=== PATIENT | female | born 1980 | race Caucasian/White ===

== ENCOUNTER 2016-05-22 15:11 | Emergency (ER) | payer OTHER ==
[~2016-05-22] VITALS: Ht 165.1 cm; Wt 73.5 kg
[~2016-05-22 15:11] MED LIST: ACET-749 PO
[2016-05-22 15:15] VITALS: TEMP 36.7; Ht 165.1 cm; Wt 73.5 kg
--- NOTE | 2016-05-22 16:04 | DIAGNOSTIC IMAGING REPORT ---
RIGHT KNEE 3 VIEWS HISTORY: right knee pain, prior surgery Right COMPARISON: Right knee 12/25/2014. FINDINGS: There is no fracture or dislocation. Soft tissues are unremarkable. No radiopaque foreign bodies. No knee effusion. IMPRESSION: Unremarkable right knee. Electronically signed by: Chao Portillo M.D. 05/22/2016 4:02 PM
[2016-05-22] MEDS ORDERED: NAPR-1169 PO (16:15)
--- NOTE | 2016-05-22 16:16 | EMERGENCY ROOM VISIT NOTE ---
ED Visit Note First contact with patient: 15:22 CHIEF COMPLAINT: knee pain HISTORY OF PRESENT ILLNESS: This 36-year-old female patient presents to the emergency department ambulatory complaining of pain in the right knee. The patient reports that she has had chronic issues with her right knee. She had 2 previous surgeries to repair the meniscus, with the most recent being 3 years ago. She states that since the second surgery, she has had issues with her right knee giving out. She did have a second opinion by another orthopedic surgeon, who sent her to physical therapy. The patient reports that this did not help her. She then received a steroid injection which gave her no relief. She states that her knee gives out frequently while walking. She has pain with walking. The patient is able to bear weight on the knee. She rates her discomfort a 10/10. She denies any new injuries to the knee. She denies any numbness, tingling or weakness of the right lower extremity. She denies any hip or ankle pain. REVIEW OF SYSTEMS: A 6 system review of systems was completed with positives and pertinent negatives listed in the HPI. ALLERGIES: No known drug allergies MEDICATIONS: No chronic medications PMH: Right knee surgery SOCIAL HISTORY: The patient lives locally with family. Nonsmoker, denies alcohol use. PHYSICAL EXAM: Vital Signs: Reviewed Nurse's notes, vital signs stable. GENERAL : This is a 36-year-old female, no acute distress, but appears in pain, well- developed, well-nourished. MENTAL STATUS: Alert, oriented to person place and time, and cooperative. MUSCULOSKELETAL: The right knee is not swollen. There is no ecchymosis. There is no joint effusion present. The patient is tender over the anterior lateral aspect of the knee. There is no joint line tenderness. The patella does not subluxate. Range of motion is full. Strength of the quads and hamstrings is 5/5. Nela's is negative. Jennifer's and Anterior Drawer tests are negative. There is no laxity with varus and valgus stressing. The foot and toes are warm and well-perfused. Dorsalis pedis pulse 2+. Sensation to pain and light touch is intact. Capillary refill less than 2 seconds. RADIOGRAPHIC FINDINGS: RIGHT KNEE 3 VIEWS HISTORY: right knee pain, prior surgery Right COMPARISON: Right knee 12/25/2014. FINDINGS: There is no fracture or dislocation. Soft tissues are unremarkable. No radiopaque foreign bodies. No knee effusion. IMPRESSION: Unremarkable right knee. EMERGENCY DEPARTMENT COURSE: I examined the patient. X-rays of the and no knee were reviewed by myself and read by radiology and reveal no acute findings. The patient has been seen by 2 different orthopedic providers. I feel that she needs to either follow up with her original orthopedist or find a new orthopedist and continue to follow-up with them. I do not feel that there is anything further to do from an ER perspective. The patient was given a prescription for Naprosyn and encouraged to wear a knee brace. She is walking fine and I do not feel that she needs crutches at this time. She will return for any new/concerning symptoms. She verbalized understanding of my assessment and treatment plan was discharged home in good condition. DIAGNOSIS: Right knee pain Current/Historical Medications Scheduled Naproxen (Naprosyn), 500 MG PO BID Allergies Coded Allergies: No Known Allergies (Unverified , 12/25/14) Vital Signs Date Time Temp Pulse Resp B/P Pulse Ox O2 Delivery O2 Flow Rate FiO2 05/22/16 16:30 103 18 112/68 97 Room Air 05/22/16 15:15 36.7 105 17 112/79 96 Room Air Departure Information Impression Primary Impression: Right knee pain Dispostion Home / Self-Care Condition GOOD Prescriptions Naproxen (Naprosyn) 500 Mg Tab 500 MG PO BID for 10 Days, #20 TAB Prov: Layne Cain ., OUMAR 05/22/16 Referrals Giovanna Castillo MD (PCP) Boone Rose MD Patient Instructions [facility], [facility] Additional Instructions You have been treated in the Emergency Department for Knee Pain. Naprosyn as prescribed. - Regular strength (325mg/tab) Tylenol (acetaminophen) 2 tabs every 4-6 hours as needed. Do not exceed 12 tablets in a 24 hour period. Avoid taking more than 4 grams (4000 mg) of Tylenol per day. This includes any other sources of acetaminophen you may take on a regular basis. If this is a recent injury (<24 hrs), ice can be applied to the area of pain for the first 3 days to help decrease pain and inflammation. Ice massages can be performed by freezing water in a paper cup, peeling back the cup to expose the ice and then massaging over the affected area. You have been provided the number for an Orthopaedic Surgeon. You should call this number as soon as possible to establish a follow-up visit from today's Emergency Department visit. Wear the Deven wrap when up and walking for additional relief. Return to the Emergency Department if your current symptoms worsen despite treatment course outlined above.
[2016-05-22 16:30] VITALS: BP 112/68; PULSE 103; O2SAT 97
== END 2016-05-22 16:31 | disposition home or self-care (01) ==
LOC: C.EDB 15:13 → C.EDD 16:31
DX: M25.561 Pain in right knee (principal)

== ENCOUNTER → 2016-05-24 | Outpatient (CLI) | payer OTHER ==
[~2016-05-24] MED LIST changes: -ACET-749 PO; +CITA20TA4 PO; +HYDR-5688 PO; +NAPR-1169 PO
[2016-05-24 12:05] LABS: BASO % 0.4 %; BASO ABS # 0.04 K/uL (0-0.2); COMPLETE YES; EOS % 1.5 %; HEMATOCRIT 40.7 % (37-47); IG% 0.2 %; LYMPH % 25.8 %; MEAN CELL VOLUME 83.6 fL (80-100); MEAN CORPUSCULAR HEMOGLOBIN 28.5 pg (25-34); MEAN CORPUSCULAR HGB CONC 34.2 g/dl (32-36); MEAN PLATELET VOLUME 10.4 fL (7.4-10.4); NEUT % 67.1 %; PLATELET COUNT 247 K/uL (130-400); RED BLOOD COUNT 4.87 M/uL (4.2-5.4); WHITE BLOOD COUNT 8.92 K/uL (4.8-10.8)
[2016-05-24 12:41] LABS: ALT/SGPT 28 U/L (12-78); BLOOD UREA NITROGEN 12 mg/dl (7-18); BUN/CREATININE RATIO 14.9 (10-20); CALCIUM 8.7 mg/dl (8.5-10.1); CARBON DIOXIDE 25 mmol/L (21-32); CHLORIDE 109 mmol/L (98-107); CHOLESTEROL 210 mg/dl (0-200); CREATININE 0.82 mg/dl (0.60-1.20); GLUCOSE 82 mg/dl (70-99); POTASSIUM 3.9 mmol/L (3.5-5.1); SODIUM 144 mmol/L (136-145)
[2016-05-24 12:52] LABS: ALB/GLOB RATIO 1.2 (0.9-2); ALKALINE PHOSPHATASE 80 U/L (45-117); AST/SGOT 16 U/L (15-37); CHOLESTEROL/HDL RATIO 5.4; HDL CHOLESTEROL 39 mg/dl; LDL CHOLESTEROL CALCULATED 143 mg/dl; TRIGLYCERIDES 139 mg/dl (0-150); VERY LOW DENSITY LIPOPROT CALC 28 mg/dl
== END | disposition home or self-care (01) ==
LOC: C.LAB 10:37
PROVIDERS: ATTEND Nurse Practitioner Adult Health
DX: Z13.220 Encounter for screening for lipoid disorders (principal); F32.9 Major depressive disorder, single episode, unspecified; L40.9 Psoriasis, unspecified

== ENCOUNTER 2016-08-30 14:13 | Emergency (ER) | payer OTHER ==
[~2016-08-30] VITALS: Ht 165.1 cm; Wt 79.5 kg
[2016-08-30 14:18] VITALS: TEMP 36.3; Ht 165.1 cm; Wt 79.5 kg
[2016-08-30] MEDS ORDERED: IBUPROFEN 600 MG TAB PO STA (14:31)
--- NOTE | 2016-08-30 14:53 | DIAGNOSTIC IMAGING REPORT ---
LEFT FOOT MIN 3 VIEWS ROUTINE CLINICAL HISTORY: fall, left trauma. Pain. COMPARISON: None. DISCUSSION: Moderate generalized degenerative change. No well-defined acute bony abnormality. Cortical margins are intact. There is no evidence for soft tissue swelling. IMPRESSION: Generalized degenerative change. No acute bony abnormality. Electronically signed by: Saad Soliz M.D. 08/30/2016 2:51 PM Dictated Date/Time: 08/30/2016 2:49 PM
--- NOTE | 2016-08-30 15:06 | EMERGENCY ROOM VISIT NOTE ---
ED Visit Note First contact with patient: 14:26 CHIEF COMPLAINT: Foot pain HISTORY OF PRESENT ILLNESS: This 36-year-old patient presents to the emergency department complaining of swelling and pain in the left foot at rest and worse with weight bearing. The patient injured the foot when she fell this morning. The patient rates the pain as throbbing and 6/10. The patient has had nothing for relief of the pain. The patient is barely able to walk. No numbness or weakness. No ankle pain. There are no lacerations of the foot. The patient is able to move all of their toes and their ankle without pain. no previous fracture to this foot. She follows with Dr. Griffin. She is prior knee issues. REVIEW OF SYSTEMS: GENERAL: A 6 system review of systems was completed with positives and pertinent negatives in the HPI. ALLERGIES: none MEDICATIONS: none PMH: Knee problems SOCIAL HISTORY: Drug use PHYSICAL EXAM: Vital Signs: Reviewed Nurse's notes, vital signs stable. GENERAL : Pleasant female, in no acute distress, but appears in pain, well-developed, well-nourished. MUSCULOSKELATAL: There is no visual deformity of the left foot. There is no erythema + ecchymosis to the third toe. There is no warmth. There is tenderness and swelling over the second and third toes of the left foot. There is no tenderness over the lateral or medial malleolus. No tenderness of the tib/fib. The range of motion of the foot is not limited secondary to pain. There is no tenderness over the plantar fascia. The skin is intact and there are no lacerations or puncture wounds. Dorsalis pedis pulse 2+. Capillary refill less than 2 seconds. EMERGENCY DEPARTMENT COURSE: I examined the patient. An X-ray of the left foot was reviewed by myself and radiology and reveals LEFT FOOT MIN 3 VIEWS ROUTINE CLINICAL HISTORY: fall, left trauma. Pain. COMPARISON: None. DISCUSSION: Moderate generalized degenerative change. No well-defined acute bony abnormality. Cortical margins are intact. There is no evidence for soft tissue swelling. IMPRESSION: Generalized degenerative change. No acute bony abnormality. Electronically signed by: Saad Soliz M.D.. The patient was placed in post op shoe and was advised and instructed on the use of crutches and patient had his own crutches. The patient was discharged home in good condition. DIAGNOSIS: Left foot injury TREATMENT: Ice and elevation for 24-48 hrs. Ibuprofen, 600mg and Tylenol 1000 mg every 6 hours for the pain. Avoid weight bearing and use crutches and post- op shoe until the pain subsides and you can walk without a limp. Follow up with family doctor or orthopedic surgeon if symptoms persist in 5-7 days. Allergies Coded Allergies: No Known Allergies (Unverified , 12/25/14) Vital Signs Date Time Temp Pulse Resp B/P Pulse Ox O2 Delivery O2 Flow Rate FiO2 08/30/16 14:18 36.3 92 18 116/75 100 Room Air Medications Administered Medications (Trade) Dose Ordered Sig/Ayde Route Start Time Stop Time Status Last Admin Dose Admin Ibuprofen (Motrin Tab) 600 mg NOW STAT PO 08/30/16 14:31 08/30/16 14:32 DC 08/30/16 14:55 600 MG Departure Information Referrals Laine Mcnamara C.R.N.PRosie (PCP) Patient Instructions [facility]
[2016-08-30 15:20] VITALS: BP 120/82; PULSE 98; O2SAT 97
== END 2016-08-30 15:22 | disposition home or self-care (01) ==
LOC: C.EDB 14:14 → C.EDD 15:22
DX: S99.922A Unspecified injury of left foot, initial encounter (principal); W19.XXXA Unspecified fall, initial encounter

== ENCOUNTER → 2016-11-15 | Outpatient (CLI) | payer OTHER ==
[~2016-11-15] MED LIST changes: -NAPR-1169 PO
== END | disposition home or self-care (01) ==
LOC: C.LAB 10:45 → MERGE 10:45
PROVIDERS: ATTEND Nurse Practitioner Adult Health
DX: E55.9 Vitamin D deficiency, unspecified (principal)

== ENCOUNTER 2016-12-26 15:45 | Emergency (ER) | payer OTHER ==
[~2016-12-26] VITALS: Ht 165.1 cm; Wt 77.0 kg
[2016-12-26 15:51] VITALS: TEMP 36.5; Ht 165.1 cm; Wt 77.0 kg
[2016-12-26] MEDS ORDERED: CITA20TA4 PO (16:04)
[2016-12-26] MEDS ORDERED: IBUPROFEN 600 MG TAB PO STA (16:08)
--- NOTE | 2016-12-26 16:33 | DIAGNOSTIC IMAGING REPORT ---
CT HEAD WITHOUT CONTRAST (CT) CLINICAL HISTORY: Head pain. Head trauma. COMPARISON STUDY: No previous studies for comparison. TECHNIQUE: Axial CT of the brain is performed from the vertex to the skull base. IV contrast was not administered for this examination. A dose lowering technique was utilized adhering to the principles of ALARA. CT DOSE: 537.48 mGy.cm FINDINGS: No intra or extra-axial mass lesions are visualized. There is no CT evidence of acute cortical infarction. There is no evidence of midline shift. There is no acute hemorrhage. No calvarial fractures are visualized. There is no evidence of pathologic ventricular dilatation. There is no evidence of acute sinusitis IMPRESSION: No acute intracranial findings Electronically signed by: Zacarias Molina M.D. 12/26/2016 4:32 PM Dictated Date/Time: 12/26/2016 4:30 PM
--- NOTE | 2016-12-26 16:49 | DIAGNOSTIC IMAGING REPORT ---
RIGHT KNEE 3 VIEWS HISTORY: 36 years-old Female acute right knee pain and bruising status post fall. COMPARISON: Right knee radiographs 05/22/2016 TECHNIQUE: 3 views of the right knee FINDINGS: There is no acute fracture, dislocation or significant degenerative changes. No intra-articular loose body identified. Patella is well seated within the trochlear groove. No osteochondral defect identified. There is a small joint effusion with mild medial soft tissue swelling. IMPRESSION: 1. No acute bony abnormality. 2. Small joint effusion with mild medial soft tissue swelling. The above report was generated using voice recognition software. It may contain grammatical, syntax or spelling errors. Electronically signed by: Umberto Williamson M.D. 12/26/2016 4:48 PM Dictated Date/Time: 12/26/2016 4:45 PM
--- NOTE | 2016-12-26 17:15 | EMERGENCY ROOM VISIT NOTE ---
ED Visit Note First contact with patient: 15:55 CHIEF COMPLAINT: Head injury, right knee pain HISTORY OF PRESENT ILLNESS: This 36-year-old female patient presented to the emergency department 1 day after receiving a head injury after falling. The patient states last night, she was attempting to stand up, when she tripped on her sister's water bottle. The patient states she hit the right side of her face on a piece of furniture, however is uncertain what she struck her face on. The patient states she has had a constant headache since last night, and she has been taking Tylenol without relief of her symptoms. The patient states she is having difficulty sleeping last night due to the pain. There was no loss of consciousness. There has been no vomiting. The patient complains of constant aching headache. The patient denies nausea, vomiting, dizziness, blurry vision , ringing in the ears, visual disturbances, or other concerning symptoms. The patient complains of no neck pain. The patient has taken 1000 mg Tylenol last night, and 500 mg this morning for the pain. The patient rates the pain as 9/ 10 and dull. The patient does report striking her right knee on the ground last night. The patient states she is also experiencing right knee pain, and is concerned because she does have a history of right knee injuries. The patient has had 2 surgeries on her meniscus, and is scheduled to potentially have surgery on her patella due to a medial deviation. The patient denies bowel or bladder dysfunction. The patient denies any other injuries. REVIEW OF SYSTEMS: A 10-system review of systems was performed with positives and pertinent negatives listed in the history of present illness. All other systems were reviewed and are negative. ALLERGIES: None MEDICATIONS: Citalopram PMH: Previous knee injuries, depression SOCIAL HISTORY: The patient lives locally with family. She denies drug, alcohol , tobacco use. PHYSICAL EXAM: Vital Signs: Reviewed Nurse's notes, vital signs stable. GENERAL : This is a 36-year-old female, in no acute distress, well-developed, well- nourished. NEURO: The patient is alert, oriented to person place and time, and coherent. Normal mini mental status exam. Negative Romberg and pronator drift. Cerebellar function intact. HEAD: Normocephalic, atraumatic. EYES: Pupils are equal round and reactive to light and accommodation. EOMs are full and optic discs and fundi are normal. There is no swelling or discoloration of the tissue surrounding the eyes. EARS: External auditory canals clear without blood. NOSE: Patent without tenderness. No septal hematoma. FACE: No facial bone tenderness. NECK: Supple. There is no cervical spine tenderness. The patient does not have tenderness with movement of the neck. MUSCULOSKELETAL: The patient has full active and passive range of motion of the right knee. There is a small abrasion on the anterior/inferior aspect of the right knee. Beth's negative. Negative Lockman's test. Mild discomfort with varus and valgus stressing. Patellar reflex intact and 2+ bilaterally. The patient does have tenderness on palpation of the entire knee. RADIOLOGY: CT Head without Contrast: FINDINGS: No intra or extra-axial mass lesions are visualized. There is no CT evidence of acute cortical infarction. There is no evidence of midline shift. There is no acute hemorrhage. No calvarial fractures are visualized. There is no evidence of pathologic ventricular dilatation. There is no evidence of acute sinusitis IMPRESSION: No acute intracranial findings X-Ray Right Knee: FINDINGS: There is no acute fracture, dislocation or significant degenerative changes. No intra-articular loose body identified. Patella is well seated within the trochlear groove. No osteochondral defect identified. There is a small joint effusion with mild medial soft tissue swelling. IMPRESSION: 1. No acute bony abnormality. 2. Small joint effusion with mild medial soft tissue swelling. ED COURSE: I examined the patient. The patient was given a dose of Motrin 600mg for her headache. I discussed with the patient options as far as workup and treatment. The patient did decide to move forward with imaging at this time. X-ray of the knee and CT of the head were both ordered and reviewed by myself and radiologist. There were no acute findings at this time. I discussed with the patient had injury precautions and encouraged close follow- up with her PCP. The patient was discharged home in good condition ambulatory. DIFFERENTIAL DIAGNOSIS: Concussion, closed head injury, intracranial hemorrhage , patellar dislocation, patellar fracture, knee contusion, ligament injury, headache, migraine, and others. DIAGNOSIS: Closed Head injury, right knee contusion DISCHARGE INSTRUCTIONS: You have been treated in the Emergency Department for a Closed Head Injury. CT Scan of your head/brain demonstrated no acute bleeding or other abnormalities. This does not completely rule out the risk for future damage to the brain. For pain control, you can use the following [id number] medicines (if >12 yo): - Regular strength (325mg/tab) Tylenol (acetaminophen) 2 tabs every 4-6 hours as needed. Do not exceed 12 tablets in a 24 hour period. Avoid taking more than 4 grams (4000 mg) of Tylenol per day. This includes any other sources of acetaminophen you may take on a regular basis. - Regular strength (200 mg/tab) Advil (ibuprofen) 1-2 tabs every 4-6 hours as needed. Do not exceed a dose of 3200 mg per day. You should relax in a quiet, dark place for the rest of the day. Avoid any possible triggers including: cigarette smoke, caffeine, nicotine, chocolate, wine, beer, loud noises or music, or bright lights. You should schedule a follow-up appointment in 2-3 days with your Primary Care Provider or established Neurologist for further evaluation and treatment of your Headache. If this is a recent injury (<24 hrs), ice can be applied to the area of pain for the first 3 days to help decrease pain and inflammation. Ice massages can be performed by freezing water in a paper cup, peeling back the cup to expose the ice and then massaging over the affected area. He should follow up with your orthopedic surgeon if your knee pain continues to worsen and not improve over the next week. Return to the Emergency Department if your current symptoms worsen despite treatment course outlined above, or if you develop any of the following symptoms : intractable pain despite aforementioned treatment course, visual disturbances , loss of vision, unilateral weakness or facial drooping, slurring of speech, loss of coordination, or loss of consciousness. Current/Historical Medications Scheduled Citalopram Hydrobromide (Citalopram Hydrobromide), 20 MG PO DAILY Allergies Coded Allergies: No Known Allergies (Unverified , 12/25/14) Vital Signs Date Time Temp Pulse Resp B/P (MAP) Pulse Ox O2 Delivery O2 Flow Rate FiO2 12/26/16 17:29 89 18 107/61 97 12/26/16 15:51 36.5 105 16 105/70 95 Room Air Medications Administered Medications (Trade) Dose Ordered Sig/Ayde Route Start Time Stop Time Status Last Admin Dose Admin Ibuprofen (Motrin Tab) 600 mg NOW STAT PO 12/26/16 16:08 12/26/16 16:14 DC 12/26/16 16:22 600 MG Departure Information Impression Primary Impression: Fall Additional Impressions: Facial contusion Abrasion of right knee Dispostion Home / Self-Care Condition GOOD Referrals Laine Mcnamara C.R.N.P. (PCP) Patient Instructions ED Abrasion, ED Contusion Face, ED Head Injury Closed, [facility] Additional Instructions You have been treated in the Emergency Department for a Closed Head Injury. CT Scan of your head/brain demonstrated no acute bleeding or other abnormalities. This does not completely rule out the risk for future damage to the brain. For pain control, you can use the following [id number] medicines (if >12 yo): - Regular strength (325mg/tab) Tylenol (acetaminophen) 2 tabs every 4-6 hours as needed. Do not exceed 12 tablets in a 24 hour period. Avoid taking more than 4 grams (4000 mg) of Tylenol per day. This includes any other sources of acetaminophen you may take on a regular basis. - Regular strength (200 mg/tab) Advil (ibuprofen) 1-2 tabs every 4-6 hours as needed. Do not exceed a dose of 3200 mg per day. You should relax in a quiet, dark place for the rest of the day. Avoid any possible triggers including: cigarette smoke, caffeine, nicotine, chocolate, wine, beer, loud noises or music, or bright lights. You should schedule a follow-up appointment in 2-3 days with your Primary Care Provider or established Neurologist for further evaluation and treatment of your Headache. If this is a recent injury (<24 hrs), ice can be applied to the area of pain for the first 3 days to help decrease pain and inflammation. Ice massages can be performed by freezing water in a paper cup, peeling back the cup to expose the ice and then massaging over the affected area. He should follow up with your orthopedic surgeon if your knee pain continues to worsen and not improve over the next week. Return to the Emergency Department if your current symptoms worsen despite treatment course outlined above, or if you develop any of the following symptoms : intractable pain despite aforementioned treatment course, visual disturbances , loss of vision, unilateral weakness or facial drooping, slurring of speech, loss of coordination, or loss of consciousness. Problem Qualifiers Primary Impression: Fall Encounter type: initial encounter Qualified Codes: W19.XXXA - Unspecified fall, initial encounter Additional Impressions: Facial contusion Encounter type: initial encounter Qualified Codes: S00.83XA - Contusion of other part of head, initial encounter Abrasion of right knee Encounter type: initial encounter Qualified Codes: S80.211A - Abrasion, right knee, initial encounter
[2016-12-26 17:29] VITALS: BP 107/61; PULSE 89; O2SAT 97
== END 2016-12-26 17:30 | disposition home or self-care (01) ==
LOC: C.EDB 15:47 → C.EDD 17:30
DX: S00.83XA Contusion of other part of head, initial encounter (principal); S80.211A Abrasion, right knee, initial encounter; W18.09XA Striking against other object with subsequent fall, initial encounter; Z79.899 Other long term (current) drug therapy; F32.9 Major depressive disorder, single episode, unspecified

== ENCOUNTER → 2017-01-04 | Outpatient (CLI) | payer OTHER | END | disposition home or self-care (01) | LOC: C.PAPS 15:07 | PROVIDERS: ATTEND Obstetrics & Gynecology | DX: Z01.419 Encounter for gynecological examination (general) (routine) without abnormal findings (principal) ==

== ENCOUNTER 2017-01-22 23:28 | Emergency (ER) | payer OTHER ==
[~2017-01-22] VITALS: Ht 165.1 cm; Wt 76.2 kg
[~2017-01-22 23:28] MED LIST changes: -HYDR-5688 PO
[2017-01-22 23:46] VITALS: TEMP 36.7; Ht 165.1 cm; Wt 76.2 kg
[2017-01-23] MEDS ORDERED: SODIUM CHLORIDE 0.9% 1000ML 2,000 ML IV STA (00:14)
[2017-01-23] MEDS ORDERED: DiphenhydrAMINE HCL 50 MG/ML VIAL IV STA (00:14)
[2017-01-23] MEDS ORDERED: METOCLOPRAMIDE HCL INJ 5 MG/ML 2 ML VIAL IV STA (00:14)
[2017-01-23] MEDS ORDERED: DICYCLOMINE HCL 10 MG/ML 2 ML AMP IM ONE (00:15)
[2017-01-23 00:25] LABS: BASO % 0.3 %; BASO ABS # 0.02 K/uL (0-0.2); COMPLETE YES; EOS % 1.1 %; HEMATOCRIT 38.3 % (37-47); IG% 0.3 %; LYMPH % 28.1 %; LYMPH ABS # 2.21 K/uL (1.2-3.4); MEAN CORPUSCULAR HEMOGLOBIN 28.9 pg (25-34); MEAN CORPUSCULAR HGB CONC 34.5 g/dl (32-36); MEAN PLATELET VOLUME 9.7 fL (7.4-10.4); MONO % 6.4 %; NEUT % 63.8 %; PLATELET COUNT 249 K/uL (130-400); RED BLOOD COUNT 4.56 M/uL (4.2-5.4); WHITE BLOOD COUNT 7.86 K/uL (4.8-10.8)
[2017-01-23 00:27] VITALS: O2SAT 99
[2017-01-23 00:47] LABS: ALT/SGPT 17 U/L (12-78); AST/SGOT 8 U/L (15-37); BLOOD UREA NITROGEN 11 mg/dl (7-18); BUN/CREATININE RATIO 14.4 (10-20); CALCIUM 8.9 mg/dl (8.5-10.1); CARBON DIOXIDE 28 mmol/L (21-32); CHLORIDE 109 mmol/L (98-107); CREATININE 0.78 mg/dl (0.60-1.20); GLUCOSE 94 mg/dl (70-99); POTASSIUM 3.8 mmol/L (3.5-5.1); SODIUM 142 mmol/L (136-145); URINE APPEARANCE CLEAR (CLEAR); URINE BILIRUBIN NEG (NEG); URINE COLOR YELLOW; URINE EPITHELIAL CELL AUTO 20-30 /lpf (0-5); URINE NITRITE NEG (NEG); URINE SPECIFIC GRAVITY 1.022 (1.000-1.030); UROBILINOGEN NEG (NEG); ZZUR CULT IF INDIC CLEAN CATCH YES
[2017-01-23 00:50] LABS: ALKALINE PHOSPHATASE 80 U/L (45-117)
[2017-01-23 00:53] LABS: MANUAL MICROSCOPIC REQUIRED? NO; REVIEW REQ? NO
[2017-01-23 01:07] LABS: PREG INTERNAL NEGATIVE QC NEG CLEAR BACKGROUND; PREG INTERNAL POSITIVE QC POS CONTROL LINE
[2017-01-23] MEDS ORDERED: BENTYL HOME PACK 10 MG VIAL PO ONE (02:00)
[2017-01-23] MEDS ORDERED: ONDANSETRON HOME PACK 4MG OD TAB PO ONE (02:00)
[2017-01-23 02:24] VITALS: BP 116/77; PULSE 88; O2SAT 100
--- NOTE | 2017-01-23 02:35 | EMERGENCY ROOM VISIT NOTE ---
History First contact with patient: 00:07 Chief Complaint: VOMITING Stated Complaint: RT SIDE PAIN, VOMITING Nursing Triage Summary: right sided pain today, "it's down where my appendix is" +vomiting, +nausea, +diarrhea. History of Present Illness The patient is a 36 year old female who presents to the Emergency Room with complaints of nausea, vomiting, diarrhea and abdominal cramping for the past day. no bad food exposure. no well water, no recent antibiotics. Patient complains of a few episodes of vomiting and diarrhea that is nonblack and tarry non-bilious he nonbloody in nature. Patient complains of a diffuse abdominal cramping currently 4-10. Nothing makes it better or worse. Patient denies chest pain, dyspnea, fever, chills, cough, congestion, back pain, urinary symptoms. Review of Systems See HPI for pertinent positives & negatives. A total of 10 systems reviewed and were otherwise negative. Past Medical/Surgical History depression, orthopedic injuries Social History Smoking Status: Never Smoker Alcohol Use: none Drug Use: none Current/Historical Medications Scheduled Citalopram Hydrobromide (Citalopram Hydrobromide), 20 MG PO DAILY Physical Exam Vital Signs Date Time Temp Pulse Resp B/P (MAP) Pulse Ox O2 Delivery O2 Flow Rate FiO2 01/23/17 01:44 92 18 116/77 100 Room Air 01/23/17 00:27 99 Room Air 01/22/17 23:46 36.7 98 18 122/71 93 Room Air Physical Exam VITALS: Vitals are noted on the nurse's note and reviewed by myself. Vital signs stable. GENERAL: Pleasant female, in no acute distress, nondiaphoretic, well-developed well-nourished. SKIN: The skin was without rashes, erythema, edema, or bruising. There is no tenting of the skin. Capillary reflex less than 2 seconds. HEAD: Normocephalic atraumatic. EARS: External auditory canals clear, tympanic membranes pearly rico without erythema or effusion bilaterally. EYES: Pupils equal round and reactive to light and accommodation. Conjunctivae without injection, sclerae without icterus. Extraocular movements intact. NOSE: Patent, turbinates without inflammation or discharge. MOUTH: Mucous membranes mildly dry. Pharynx without erythema or exudate. Uvula midline. Airway patent. Tongue does not deviate. NECK: Supple without nuchal rigidity. No lymphadenopathy. No thyromegaly. Cervical spine is nontender. No JVD. HEART: Regular rate and rhythm without murmurs gallops or rubs. LUNGS: Clear to auscultation bilaterally without wheezes, rales or rhonchi. No dullness to percussion. No retractions or accessory muscle use. ABDOMEN: Positive bowel sounds x 4. Normal tympanic percussion. Soft, nontender, without masses or organomegaly. Kimball sign negative. No guarding or rebound tenderness. No CVA tenderness MUSCULOSKELETAL: No muscle atrophy, erythema, or edema noted. NEURO: Patient was alert and oriented to person place and time. Normal sensation to light and sharp touch. No focal neurological deficits. Medical Decision & Procedures Laboratory Results 01/23/17 00:00 Red Blood Count 4.56, Mean Corpuscular Volume 84.0, Mean Corpuscular Hemoglobin 28.9, Mean Corpuscular Hemoglobin Concent 34.5, Mean Platelet Volume 9.7, Neutrophils (%) (Auto) 63.8, Lymphocytes (%) (Auto) 28.1, Monocytes (%) (Auto) 6.4, Eosinophils (%) (Auto) 1.1, Basophils (%) (Auto) 0.3, Neutrophils # (Auto) 5.02, Lymphocytes # (Auto) 2.21, Monocytes # (Auto) 0.50, Eosinophils # (Auto) 0.09, Basophils # (Auto) 0.02 01/23/17 00:00 Test 01/23/17 00:00 White Blood Count 7.86 K/uL (4.8-10.8) Red Blood Count 4.56 M/uL (4.2-5.4) Hemoglobin 13.2 g/dL (12.0-16.0) Hematocrit 38.3 % (37-47) Mean Corpuscular Volume 84.0 fL (80-100) Mean Corpuscular Hemoglobin 28.9 pg (25-34) Mean Corpuscular Hemoglobin Concent 34.5 g/dl (32-36) Platelet Count 249 K/uL (130-400) Mean Platelet Volume 9.7 fL (7.4-10.4) Neutrophils (%) (Auto) 63.8 % Lymphocytes (%) (Auto) 28.1 % Monocytes (%) (Auto) 6.4 % Eosinophils (%) (Auto) 1.1 % Basophils (%) (Auto) 0.3 % Neutrophils # (Auto) 5.02 K/uL (1.4-6.5) Lymphocytes # (Auto) 2.21 K/uL (1.2-3.4) Monocytes # (Auto) 0.50 K/uL (0.11-0.59) Eosinophils # (Auto) 0.09 K/uL (0-0.5) Basophils # (Auto) 0.02 K/uL (0-0.2) RDW Standard Deviation 43.7 fL (36.4-46.3) RDW Coefficient of Variation 14.3 % (11.5-14.5) Immature Granulocyte % (Auto) 0.3 % Immature Granulocyte # (Auto) 0.02 K/uL (0.00-0.02) Urine Color YELLOW Urine Appearance CLEAR (CLEAR) Urine pH 6.0 (4.5-7.5) Urine Specific [place] 1.022 (1.000-1.030) Urine Protein NEG (NEG) Urine Glucose (UA) NEG (NEG) Urine Ketones NEG (NEG) Urine Occult Blood 1+ (NEG) Urine Nitrite NEG (NEG) Urine Bilirubin NEG (NEG) Urine Urobilinogen NEG (NEG) Urine Leukocyte Esterase SMALL (NEG) Urine WBC (Auto) >30 /hpf (0-5) Urine RBC (Auto) 0-4 /hpf (0-4) Urine Hyaline Casts (Auto) 10-30 /lpf (0-5) Urine Epithelial Cells (Auto) 20-30 /lpf (0-5) Urine Bacteria (Auto) NEG (NEG) Anion Gap 5.0 mmol/L (3-11) Est Creatinine Clear Calc Drug Dose 102.8 ml/min Estimated GFR () 114.2 Estimated GFR (Non- 98.5 BUN/Creatinine Ratio 14.4 (10-20) Calcium Level 8.9 mg/dl (8.5-10.1) Total Bilirubin 0.3 mg/dl (0.2-1) Direct Bilirubin < 0.1 mg/dl (0-0.2) Aspartate Amino Transf (AST/SGOT) 8 U/L (15-37) Alanine Aminotransferase (ALT/SGPT) 17 U/L (12-78) Alkaline Phosphatase 80 U/L (45-117) Total Protein 7.4 gm/dl (6.4-8.2) Albumin 3.6 gm/dl (3.4-5.0) Lipase 72 U/L (73-393) Human Chorionic Gonadotropin, Qual NEG (NEG) Medications Administered Medications (Trade) Dose Ordered Sig/Ayde Route Start Time Stop Time Status Last Admin Dose Admin Sodium Chloride 2,000 ml @ 999 mls/hr Q2H1M STAT IV 01/23/17 00:14 01/23/17 02:14 DC 01/23/17 00:21 999 MLS/HR Dicyclomine HCl (Bentyl Inj) 20 mg NOW ONCE IM 01/23/17 00:15 01/23/17 00:16 DC 01/23/17 00:20 20 MG Metoclopramide HCl (Reglan Inj) 10 mg NOW STAT IV 01/23/17 00:14 01/23/17 00:16 DC 01/23/17 00:20 10 MG Diphenhydramine HCl (Benadryl Inj) 12.5 mg NOW STAT IV 01/23/17 00:14 01/23/17 00:16 DC 01/23/17 00:20 12.5 MG ED Course Prior records/ancillary studies reviewed. Triage Nursing notes reviewed. Additional history obtained from the family. The patient's history was concerning for nausea, vomiting, diarrhea, and abdominal pain. Differential diagnosis: Etiologies such as gastroenteritis, food borne illness, infections, appendicitis , diverticulitis, inflammatory bowel disease, obstruction, GI bleed, biliary pathology, as well as others were entertained. Physical examination findings: As above. Abdominal examination revealed no tenderness. Vital signs reviewed and revealed stable. ER treatment provided: IV hydration 2 L NSS. Bentyl, Reglan, Benadryl On reassessment the patient felt better. Patient was tolerating p.o. intake. Diagnostics interpretation by me: The labs revealed negative hCG. Stable H&H. Urine concerning for contamination and sent for culture. Patient had no urinary symptoms and will await culture This appears to be consistent with vomiting and diarrhea most likely viral in etiology. Patient ate a full meal in the ER. She felt much better. She is tolerating fluids. She did not have acute abdomen on exam. Patient was advised to do bland diet for the next 2 days, stay well-hydrated and follow-up family care in a few days or here in the ER sooner for abdominal pain, fevers, vomiting, worsening signs or symptoms or as needed. By the evaluation outlined above emergent etiologies such as appendicitis, diverticulitis, obstruction, cardiac sources, mesenteric ischemia, aortic pathology, inflammatory bowel disease, renal colic, PUD, biliary pathology, UTI, as well as others were deemed relatively unlikely. The pt informed about the findings as listed above. All questions were answered and pleased with the treatment. Return instructions were outlined and the patient was discharged in stable condition. Outpatient prescription management: duncan, fredyl Referral: The patient was referred to their primary care physician for follow-up in 2 to 3 days for a recheck of the current condition. Case reviewed with my attending Medical Decision As above Medication Reconcilliation Current Medication List: was personally reviewed by me Blood Pressure Screening Patient's blood pressure: Normal blood pressure Impression Primary Impression: Nausea, vomiting, and diarrhea Departure Information Dispostion Home / Self-Care Condition GOOD Forms HOME CARE DOCUMENTATION FORM, Work Instructions, Return To Work: 2 days IMPORTANT VISIT INFORMATION Patient Instructions Vomit Diarrhea Self Care, My [facility], ED Diet [place] Additional Instructions DO NOT drive, drink alcohol, operate machinery, or perform dangerous activities today. You were given medications in the ER that can affect your ability to safely function or operate a vehicle. Bentyl 10 mg: Take one every six hours as needed for abdominal cramping. Avoid alcohol, operating machinery or dangerous equipment, working on ladders or roofs , DRIVING, or situations where being under the influence may be dangerous. Zofran(odansetron) tablets 4mg: Take one and allow it to dissolve in your mouth every four to six hours as needed for nausea or vomiting. Acetaminophen(Tylenol) may be used for fever or pain. Use 1000mg every six hours as needed. Avoid using more than 3000mg in a 24 hour period. Rest and drink plenty of fluids as tolerated. Slow sips of water or sports drinks are recommended instead of large amounts all at once. Continue current medications. Once your stomach is settled start with a clear liquid diet (jello, soup broth, etc.) and then advance as tolerated. You should avoid full, heavy meals for about 24 hrs from the time your symptoms resolved. Return to the ER for persistent vomiting, fevers, abdominal pain, chest pains, difficulty breathing, black or bloody stools, worsening of your condition, or as needed. Follow up with your primary physician in 2-3 days for a recheck of your current condition. Work Instructions Return To Work: 2 days
== END 2017-01-23 01:45 | disposition home or self-care (01) ==
LOC: C.EDB 23:30 → C.EDC 01-23 01:45
DX: R11.2 Nausea with vomiting, unspecified (principal); R19.7 Diarrhea, unspecified; F32.9 Major depressive disorder, single episode, unspecified; Z79.899 Other long term (current) drug therapy

== ENCOUNTER → 2017-01-28 | Outpatient (CLI) | payer OTHER ==
[~2017-01-28] MED LIST changes: +HYDR-5688 PO
[2017-01-28 15:02] LABS: URINE APPEARANCE CLOUDY (CLEAR); URINE BILIRUBIN NEG (NEG); URINE COLOR YELLOW; URINE EPITHELIAL CELL AUTO >30 /lpf (0-5); URINE NITRITE POS (NEG); URINE SPECIFIC GRAVITY 1.018 (1.000-1.030); UROBILINOGEN NEG (NEG)
[2017-01-28 15:13] LABS: MANUAL MICROSCOPIC REQUIRED? NO; REVIEW REQ? YES
== END | disposition home or self-care (01) ==
LOC: C.LABSPEC 13:40
PROVIDERS: ATTEND Physician Assistant
DX: R39.9 Unspecified symptoms and signs involving the genitourinary system (principal)

== ENCOUNTER 2017-02-15 06:09 | Day surgery (SDC) | payer OTHER ==
[2017-02-08 08:42] VITALS: BMI 28.0
--- NOTE | 2017-02-08 09:10 | PAT Medication Instructions ---
Service Date Feb 08, 2017. Current Home Medication List Citalopram Hydrobromide (Citalopram Hydrobromide), 20 MG PO HS Medication Instructions For Your Scheduled Surgery - Take the following medications as scheduled the night before surgery: Citalopram Hydrobromide (Citalopram Hydrobromide), 20 MG PO HS OTHERWISE NOTHING TO EAT OR DRINK AFTER MIDNIGHT If you have any questions please call us at [phone] or [phone] or [phone]
--- NOTE | 2017-02-08 10:02 | DIAGNOSTIC IMAGING REPORT ---
CHEST PREADMISSION(PA/LAT) CLINICAL HISTORY: Preoperative evaluation. COMPARISON STUDY: No previous studies for comparison. FINDINGS: Lung volumes are normal. No consolidation is identified. There is no pneumothorax or pleural effusion. Pulmonary vascularity is normal. Cardiomediastinal silhouette is normal. IMPRESSION: No acute cardiopulmonary findings. Electronically signed by: Tripp Murillo M.D. 02/08/2017 10:00 AM Dictated Date/Time: 02/08/2017 10:00 AM
[2017-02-08 10:13] LABS: URINE APPEARANCE CLEAR (CLEAR); URINE BILIRUBIN NEG (NEG); URINE COLOR YELLOW; URINE NITRITE NEG (NEG); URINE PH 6.5 (4.5-7.5); URINE SPECIFIC GRAVITY 1.022 (1.000-1.030); UROBILINOGEN NEG (NEG)
[2017-02-08 10:14] LABS: MANUAL MICROSCOPIC REQUIRED? NO; REVIEW REQ? NO
[2017-02-08 10:33] LABS: PARTIAL THROMBOPLASTIN RATIO 1.2; PROTHROMBIN TIME (PATIENT) 10.9 SECONDS (9.0-12.0)
--- NOTE | 2017-02-14 21:11 | History and Physical ---
History & Physical Date Feb 14, 2017. Chief Complaint Right knee pain History of Present Illness The patient is a 36 year old female with complaints of right knee pain that has been chronic for a few years. She has had 2 other arthroscopic procedures for the knee which have helped but the pain has returned. She failed conservative management and is now being set up for another knee arthroscopy. Past Medical/Surgical History PMH: Depression Past surgical hx: Right knee scope x 2 in 2011 and 2014. Allergies Coded Allergies: No Known Allergies (Unverified , 02/08/17) Home Medications Scheduled Citalopram Hydrobromide (Citalopram Hydrobromide), 20 MG PO HS Physical Examination Skin: warm/dry, no rash Eyes: normal inspection ENT: normal ENT inspection Head: normocephalic, atraumatic Neck: supple, no adenopathy, trachea midline Respiratory/Chest: lungs clear, normal breath sounds, no respiratory distress Cardiovascular: regular rate, rhythm, no murmur Abdomen / GI: normal bowel sounds, non tender Extremities: + pertinent finding (Right knee: mild swelling. No ecchymosis or erythema. Tender along the patella. PROM shows a maltracking patella. ) Neurologic/Psych: no motor/sensory deficits, alert, oriented x 3 Diagnosis Right knee maltracking patella Plan of Treatment Recommend a right knee arthroscopy with a lateral release and medial plication. All potential risks, benefits, complications, alternatives, and rehab have been discussed and she wishes to proceed. The surgery will be scheduled for 02.15.17.
[~2017-02-15] VITALS: Ht 165.1 cm; Wt 76.6 kg
[~2017-02-15 06:09] MED LIST changes: +CEFAZOLIN 2000 MG/60 ML D5W IV SCH; -HYDR-5688 PO; +LACTATED RINGER'S 1000ML 1,000 ML IV SCH
[2017-02-15] MEDS ORDERED: EpINEphrine HCL INJ 1 MG/ML 5ML SYRINGE ONE (07:04)
[2017-02-15] MEDS ORDERED: BUPIVACAINE/EPINEPHRINE 0.5% MPF 1:200,000 30 ML VIAL ONE (07:04)
[2017-02-15 07:06] VITALS: BP 115/80; PULSE 93; TEMP 36.6; O2SAT 97; Ht 165.1 cm; Wt 76.6 kg
[2017-02-15 07:35] LABS: PREG INTERNAL NEGATIVE QC NEG CLEAR BACKGROUND; PREG INTERNAL POSITIVE QC POS CONTROL LINE
--- NOTE | 2017-02-15 08:01 | History & Physical Bridge Note ---
H&P Re-Evaluation Bridge Note: I have examined the patient, reviewed the History & Physical and in the interval since the performance of the History & Physical I have noted the following changes of clinical significance: No changes noted
[2017-02-15] MEDS ORDERED: ONDANSETRON INJ 2 MG/ML 2 ML VIAL ONE (08:37)
[2017-02-15] MEDS ORDERED: PROPOFOL IV EMULSION 10 MG/ML 20 ML VIAL IV ONE (08:37)
[2017-02-15] MEDS ORDERED: DEXAMETHASONE SOD INJ 4 MG/ML VIAL ONE (08:37)
[2017-02-15] MEDS ORDERED: MIDAZOLAM HCL 1 MG/ML 2ML VIAL ONE (08:37)
[2017-02-15] MEDS ORDERED: LIDOCAINE HCL 2% 2 ML VIAL (20MG/ML) ONE (08:37)
[2017-02-15] MEDS ORDERED: FENTANYL CITRATE INJ 50 MCG/1 ML 2 ML VIAL ONE ×2 (08:38→11:13)
[2017-02-15] MEDS ORDERED: KETOROLAC TROMETHAMINE 30 MG/ML VIAL IV. PRN ×2 (09:45→11:15)
[2017-02-15] MEDS ORDERED: MoRPHine SULFATE 2 MG/ML CARP IV PRN (09:45)
[2017-02-15] MEDS ORDERED: ONDANSETRON INJ 2 MG/ML 2 ML VIAL IV PRN ×2 (09:45→11:15)
[2017-02-15] MEDS ORDERED: EpHEDrine SULFATE 50MG/5ML SYR ONE (09:47)
[2017-02-15] MEDS ORDERED: HYDR-5688 PO (09:51)
--- NOTE | 2017-02-15 09:56 | Discharge Instructions ---
Discharge Instructions Date of Service Feb 15, 2017. Visit Reason for Visit: Right Knee Maltracking Patella, Chondromalacia Discharge Discharge Diagnosis / Problem: Right Knee Maltracking Patella; Chondromalacia Discharge Goals Goal(s): Decrease discomfort, Improve function Activity Recommendations Activity Limitations: per Instructions/Follow-up section Weightbearing Status: Right weightbearing (as tolerated) Anesthesia . Post Anesthesia Instructions: If you have had General Anesthesia or IV Sedation: * Do not drive today. * Resume driving when surgeon permits. * Do not make important decisions or sign legal documents today. * Call surgeon for: 1. Temperature elevations greater than 101 degrees F. 2. Uncontrollable pain. 3. Excessive bleeding. 4. Persistent nausea and vomiting. 5. Medication intolerance (nausea, vomiting or rash). * For nausea and vomiting use only clear liquids such as: tea, soda, bouillon until nausea subsides, then gradually increase diet as tolerated. * If you have any concerns or questions, call your surgeon's office. If physician is unavailable and it is an emergency, call 911 or go to the nearest emergency room. . Instructions / Follow-Up Instructions / Follow-Up ACTIVITY RECOMMENDATIONS: * You may walk on the leg with or without crutches as comfort permits. * Bending of the knee should start at once. * Do not shower for 48 hours following surgery. SPECIAL CARE INSTRUCTIONS: * You may cleanse the skin adjacent to the small wounds with soap and water at the time of the first dressing change. * The application of an ice bag to the front and sides of the knee will decrease swelling and discomfort for the first 48 hours. * The small incisions may be sore and develop bruising. This bruising does not require any special care. SPECIAL PRECAUTIONS: * If you experience unusual pain unrelieved by prescriptions, temperature elevation (100 degrees F. or above) or progressive swelling or bleeding, you should contact our office at for further evaluation. * You may have been prescribed pain medication. If you experience nausea and/or fine skin rash, discontinue this medication and contact our office at for an alternate medication. DRESSING: * Dressing should be comfortable and absorb any leakage of fluid and/or blood. * The dressing may become moist or bloodstained. * Dressing may be removed in 48 hours after surgery and bandaids placed over the small surgical incisions. If can be removed sooner if it becomes very soiled or loose. * Bandaids may be used over next several days as needed and can be discontinued when there is not further drainage from the wounds. FOLLOW UP VISIT: If appointment is not already scheduled: Please call [facility] to make a follow-up appointment for your surgery at . Diet Recommendations Recommended Home Diet: resume previous diet Pending Studies Studies pending at discharge: no Medical Emergencies . Who to Call and When: Medical Emergencies: If at any time you feel your situation is an emergency, please call 911 immediately. . Non-Emergent Contact Non-Emergency issues call your: Surgeon Call Non-Emergent contact if: temperature is above 101.5, your pain is not controlled, your pain is worsening, wound has increased drainage, wound has increased redness . . "Provider Documentation" section prepared by Santiago Álvarez. . [place] Drug Monitoring Program Search Results: patient reviewed within database, no issues identified
--- NOTE | 2017-02-15 11:09 | [facility] Post Operative Brief Note ---
Immediate Operative Summary Operative Date Feb 15, 2017. Pre-Operative Diagnosis Right Knee Maltracking Patella, Patellofemoral Syndrome, Chondromalacia Patella Post-Operative Diagnosis Right Knee Maltracking Patella, Patellofemoral Syndrome, Chondromalacia Patella Grade 2, Tear Anterior Horn Medial Meniscus, Synovitis Procedure(s) Performed Right Knee Arthroscopy with Lateral Retinacular Release, Partial Medial Menisectomy, Chondroplasty Patella, Synovectomy Surgeon Dr Griffin Break Out Worker Surgeon(s) None Estimated Blood Loss 5cc Findings See Dict Specimens None as per Surgeon Drains None Anesthesia GLMA w/ Local Complication(s) None Disposition Recovery Room / PACU
[2017-02-15] MEDS ORDERED: KETOROLAC TROMETHAMINE 30 MG/ML VIAL ONE (11:12)
[2017-02-15] MEDS ORDERED: PROMETHAZINE HCL INJ 12.5 MG in SODIUM CHLORIDE 0.9% 50ML 50 ML IV PRN (11:15)
[2017-02-15] MEDS ORDERED: ATROPINE SULFATE 0.1 MG/ML 5ML SYR IV PRN (11:15)
[2017-02-15] MEDS ORDERED: FENTANYL CITRATE INJ 50 MCG/1 ML 2 ML VIAL IV PRN (11:15)
[2017-02-15 11:30] VITALS: BP 121/69; PULSE 114; TEMP 36.5; O2SAT 93
--- NOTE | 2017-02-15 11:39 | Anesthesiology Progress Note ---
Anesthesia Post Op Note Date & Time Feb 15, 2017 at 11:39 Vital Signs Vital Signs Past 12 Hours Date Time Temp Pulse Resp B/P (MAP) Pulse Ox O2 Delivery O2 Flow Rate FiO2 02/15/17 11:20 36.3 117 15 131/74 93 Room Air 02/15/17 11:10 120 15 115/72 93 Room Air 02/15/17 11:00 117 16 114/65 98 Oxymask 8 02/15/17 10:50 120 16 140/81 98 Oxymask 8 02/15/17 10:46 36.2 115 16 131/76 98 Oxymask 8 02/15/17 07:06 36.6 93 18 115/80 (92) 97 Room Air Notes Mental Status: alert / awake / arousable, participated in evaluation Pt Amnestic to Procedure: Yes Nausea / Vomiting: adequately controlled Pain: adequately controlled Airway Patency, RR, SpO2: stable & adequate BP & HR: stable & adequate Hydration State: stable & adequate Anesthetic Complications: no major complications apparent
[2017-02-15 12:00] VITALS: BP 119/66; PULSE 121; TEMP 36.5; O2SAT 95
[2017-02-15 12:30] VITALS: BP 112/72; PULSE 110; TEMP 36.5; O2SAT 96
--- NOTE | 2017-02-15 14:41 | OPERATIVE REPORT ---
DATE OF OPERATION: 02/15/2017 PREOPERATIVE DIAGNOSES: 1. Right knee patellofemoral syndrome. 2. Lateral tracking patella. POSTOPERATIVE DIAGNOSES: 1. Right knee patellofemoral syndrome. 2. Lateral tracking patella. 3. Chondromalacia grade 2 of the patella. 4. Medial meniscus tear, anterior horn. 5. Synovitis. PROCEDURES: 1. Right knee arthroscopy with lateral retinacular release. 2. Partial medial meniscectomy anterior horn. 3. Chondroplasty of patella. 4. Synovectomy. SURGEON: Dr. Griffin. FERMENTER CHAMPAGNE: None. ANESTHESIA: General LMA with local. SPECIMENS: None. DRAINS: None. COMPLICATIONS: None. BLOOD LOSS: Less than 5 mL. PERTINENT HISTORY: This is a 36-year-old female who had prior arthroscopy of the knee several years ago and then began having onset of anterior and anterior medial knee pain. She attempted and failed conservative management including physical therapy, home exercises, use of a brace, modification of activities, steroid injection, viscosupplementation and observation with anti-inflammatories. She had an MRI which demonstrated lateral tracking of the patella with possible chondromalacia of the patella. The patient was then scheduled for surgery as indicated. All potential risks, benefits, complications, alternatives, rehab, potential for incomplete relief of symptoms, need for further surgery, DVT, PE, , persistent pain, swelling, scarring, weakness, neurovascular injury, wound complications were discussed with the patient. The patient decided to proceed with the procedure as indicated. PROCEDURE: The patient was taken to the operative suite, placed supine on the operating table. After reviewing consent and identification of proper operative site, the patient was anesthetized, LMA was placed. Tourniquet was placed high on the right thigh over cast padding. Right lower extremity was then sterilely prepped and draped in usual fashion, elevated and exsanguinated with Esmarch bandage, tourniquet inflated to 350 mmHg. Next, a 11 blade scalpel was used to make an incision inferior lateral aspect of the knee joint, followed by placement of blunt trocar and sleeve camera and inflow. Next, a superolateral portal was established using 11-blade scalpel, incision followed by placement of blunt trocar and sleeve and outflow. Next, sequential diagnostic arthroscopy commenced suprapatellar pouch noting moderate synovitis and previously resected medial synovial plica. Also noted, chondromalacia grade 2 of the undersurface of the patella with fibrillation with some minor fissuring. The medial gutter was inspected. No loose bodies encountered. Evidence as mentioned previously of prior resection of medial synovial plica unremarkable. Next, the medial joint space was inspected, 18 gauge spinal needle was inserted for localization of the portal site followed by an 11 blade scalpel incision following placement of blunt tipped probe. The posterior horn and body of the meniscus were noted to be intact. Chondral surfaces of the medial tibial plateau and the medial femoral condyle and noted to be intact. There was a small flap tear of the anterior horn of the medial meniscus. A 4.5 mm sucker shaver was then inserted and used to perform a partial medial meniscectomy of the anterior horn of the medial meniscus. Next, the ACL and PCL were inspected. A probe was inserted, noted to be intact. Next, the lateral joint space was inspected. The lateral condyle and lateral tibial plateau noted to be intact. The meniscus was probed and noted to be stable and intact. Next, attention was then directed toward the patellofemoral articulation, noted to have a lateral tracking and fibrosis of the lateral retinaculum. At this point a hook probe was inserted and a lateral retinacular release was performed from the VMO distally followed by synovectomy of the joint with a 4.5 mm sucker shaver. Assessment was made of the patellar tracking and initial consideration was for medial plication however the patellar was noted to track centrally both at rest and full extension and with easy early encasement at 30 degrees of flexion within the trochlear groove, therefore no medial plication was indicated in this case. Next, attention was then directed toward the undersurface of the patella and a chondroplasty was then performed of the patella, smoothing the fibrillation noted previously. Next, the joint was then irrigated and lavaged copiously followed by removal of all instruments. Excess fluid was then expressed from the joint, followed by closure of the portal sites with interrupted 4-0 nylon sutures and injection of 30 mL of 0.25% Marcaine with epinephrine. Next, sterile compressive dressing was applied overwrapped with an ABD pad and Deven wrap. The tourniquet was then released. The patient was awakened and taken to recovery in stable condition. I attest to the content of the Intraoperative Record and any orders documented therein. Any exception s are noted below.
== END 2017-02-15 12:45 | disposition home or self-care (01) ==
LOC: C.ACU 06:09
PROVIDERS: ATTEND Orthopaedic Surgery Sports Medicine
DX: M22.2X1 Patellofemoral disorders, right knee (principal); M22.41 Chondromalacia patellae, right knee; M23.211 Derangement of anterior horn of medial meniscus due to old tear or injury, right knee; M65.861 Other synovitis and tenosynovitis, right lower leg; F32.9 Major depressive disorder, single episode, unspecified; Z68.28 Body mass index [BMI] 28.0-28.9, adult

== ENCOUNTER 2018-01-06 18:37 | Emergency (ER) | payer OTHER ==
[~2018-01-06] VITALS: Ht 165.1 cm; Wt 77.0 kg
[~2018-01-06 18:37] MED LIST changes: -CEFAZOLIN 2000 MG/60 ML D5W IV SCH; -LACTATED RINGER'S 1000ML 1,000 ML IV SCH
[2018-01-06 18:44] VITALS: TEMP 36.8; Ht 165.1 cm; Wt 77.0 kg
[2018-01-06] MEDS ORDERED: ACETAMINOPHEN 500 MG TAB PO STA (18:52)
--- NOTE | 2018-01-06 18:58 | EMERGENCY ROOM VISIT NOTE ---
ED Visit Note First contact with patient: 18:47 CHIEF COMPLAINT: Right knee pain HISTORY OF PRESENT ILLNESS: This 37-year-old female patient presents to the emergency department, ambulatory, complaining of right knee grinding and giving out on her since January of last year. The patient states she had surgery for a torn meniscus at that time. She has been seeing Dr. Griffin, but never went back for a follow-up after surgery. The patient denies any new injury. The patient denies swelling or bruising. There is pain throughout the entire knee. They rate the pain as sharp and 10/10. The patient states they are able to walk on it. No numbness or tingling. No previous injuries to this knee. No ankle, foot or hip pain. The patient has been taking 600 mg ibuprofen every 6 hours for pain. She denies any follow-up appointments with Dr. Griffin. She states she needs a referral from her primary care provider, but has not scheduled an appointment to get this referral. She has not contacted her PCP regarding a referral. REVIEW OF SYSTEMS: A 6 system review of systems was completed with positives and pertinent negatives listed in the HPI. ALLERGIES: None MEDICATIONS: Citalopram PMH: Depression SOCIAL HISTORY: The patient lives locally with family. She denies drug, alcohol , tobacco use. PHYSICAL EXAM: Vital Signs: Reviewed Nurse's notes, vital signs stable. GENERAL : This is a 37-year-old white female, no acute distress, but appears in pain, well-developed, well-nourished. MENTAL STATUS: Alert, oriented to person place and time, and cooperative. MUSCULOSKELETAL: The right knee is not swollen. There is no ecchymosis. There is no joint effusion present. The patient is tender over the entire knee and throughout the entire examination. There is joint line tenderness. The patella does appropriately subluxate. Range of motion is full, however painful. Strength of the quads and hamstrings is 0/5 on examination, however the patient is ambulatory. I suspect she is malingering and refusing to move the extremity during this portion of the examination. Nela's is negative. Jennifer's and Anterior Drawer tests are negative. There is significant discomfort, but no laxity with varus and valgus stressing. The foot and toes are warm and well-perfused. Dorsalis pedis pulse 2+. Sensation to pain and light touch is intact. Capillary refill less than 2 seconds. RADIOLOGY: R KNEE 1 OR 2 VIEWS ROUTINE CLINICAL HISTORY: Right knee pain. COMPARISON: Right knee radiographs December 26, 2016. FINDINGS: Alignment of the right knee is anatomic. No acute fracture or joint effusion. Apparent increased sclerosis within the lateral femoral condyle and lateral tibial plateau is probably artifactual. Joint spaces are preserved. There is mild osteophytosis within the right knee. IMPRESSION: 1. No acute fracture or joint effusion of the right knee. 2. Apparent mild sclerosis of the lateral femoral condyle and lateral tibial plateau, a nonspecific finding which may be artifactual. Electronically signed by: Tripp Murillo M.D. 01/06/2018 7:34 PM Dictated Date/Time: 01/06/2018 7:32 PM EMERGENCY DEPARTMENT COURSE: I examined the patient. She was given Tylenol for pain. X-rays of the right knee were reviewed by myself and read by radiology and reveal no acute fracture or joint effusion. There was noted mild sclerosis of the lateral femoral condyle and lateral tibial plateau which was felt to be nonspecific and possibly artifactual. I did discuss this finding with the patient at bedside and encouraged her to follow-up with orthopedics. The patient was placed in a knee immobilizer under my direction and the position was satisfactory. The patient was instructed on the use of crutches. Discharge instructions reviewed. The patient was discharged home in good condition. I attest that I have personally reviewed the patient's current medication list. Patient was found to have normal blood pressure on screening and does not require follow-up. Etiologies such as soft tissue injury, fracture, dislocation, neurovascular compromise, compartment syndrome, as well as others were entertained. DIAGNOSIS: Chronic right knee pain The chart was completed utilizing [employer] Speech voice recognition software. Grammatical errors, random word insertions, pronoun errors, and incomplete sentences are an occasional consequence of this system due to software limitations, ambient noise, and hardware issues. Any formal questions or concerns about the content, text, or information contained within the body of this dictation should be directly addressed to the provider for clarification. Current/Historical Medications Scheduled Citalopram Hydrobromide (Citalopram Hydrobromide), 20 MG PO HS Allergies Coded Allergies: No Known Allergies (Unverified , 02/15/17) Vital Signs Date Time Temp Pulse Resp B/P (MAP) Pulse Ox O2 Delivery O2 Flow Rate FiO2 01/06/18 20:15 86 16 125/73 98 Room Air 01/06/18 18:44 36.8 100 18 119/66 98 Room Air Medications Administered Medications (Trade) Dose Ordered Sig/Ayde Route Start Time Stop Time Status Last Admin Dose Admin Acetaminophen (Tylenol Tab) 1,000 mg NOW STAT PO 01/06/18 18:52 01/06/18 18:54 DC 01/06/18 19:00 1,000 MG Departure Information Impression Primary Impression: Knee pain Dispostion Home / Self-Care Condition GOOD Referrals Giovanna Castillo MD (PCP) Francisco Griffin D.O. Patient Instructions ED Knee Pain KATH, [facility] Additional Instructions You have been treated in the Emergency Department for Knee Pain. For pain control, you can use the following qfeb-abh-tybjanb medicines (if >12 yo): Ibuprofen(Motrin, Advil) may be used for fever or pain. Use 600mg every six hours as needed. Take with food. Avoid using more than 2400mg in a 24 hour period. Do not use 2400mg per day for more than three consecutive days without physician direction. Prolonged inappropriate use can lead to stomach upset or ulcers. (AND/OR) Acetaminophen(Tylenol) may be used for fever or pain. Use 1000mg every six hours as needed. Avoid using more than 3000mg in a 24 hour period. If this is a recent injury (<24 hrs), ice can be applied to the area of pain for the first 3 days to help decrease pain and inflammation. Ice massages can be performed by freezing water in a paper cup, peeling back the cup to expose the ice and then massaging over the affected area. You have been provided the number for an Orthopaedic Surgeon. You should call this number as soon as possible to establish a follow-up visit from today's Emergency Department visit. Use the knee immobilizer for comfort. Use the crutches as needed to help with weight bearing. Return to the Emergency Department if your current symptoms worsen despite treatment course outlined above. Problem Qualifiers Primary Impression: Knee pain Chronicity: chronic Laterality: right Qualified Codes: M25.561 - Pain in right knee; G89.29 - Other chronic pain
--- NOTE | 2018-01-06 19:35 | DIAGNOSTIC IMAGING REPORT ---
R KNEE 1 OR 2 VIEWS ROUTINE CLINICAL HISTORY: Right knee pain. COMPARISON: Right knee radiographs December 26, 2016. FINDINGS: Alignment of the right knee is anatomic. No acute fracture or joint effusion. Apparent increased sclerosis within the lateral femoral condyle and lateral tibial plateau is probably artifactual. Joint spaces are preserved. There is mild osteophytosis within the right knee. IMPRESSION: 1. No acute fracture or joint effusion of the right knee. 2. Apparent mild sclerosis of the lateral femoral condyle and lateral tibial plateau, a nonspecific finding which may be artifactual. Electronically signed by: Tripp Murillo M.D. 01/06/2018 7:34 PM Dictated Date/Time: 01/06/2018 7:32 PM
[2018-01-06 20:15] VITALS: BP 125/73; PULSE 86; O2SAT 98
== END 2018-01-06 20:18 | disposition home or self-care (01) ==
LOC: C.EDB 18:39 → C.EDD 20:18
DX: M25.561 Pain in right knee (principal); G89.29 Other chronic pain; Z96.651 Presence of right artificial knee joint; F32.9 Major depressive disorder, single episode, unspecified; Z79.899 Other long term (current) drug therapy